=== PATIENT | female | born 1940 | race Caucasian/White ===

== ENCOUNTER 2020-08-17 11:41 | Emergency (ER) | payer OTHER ==
[~2020-08-17] VITALS: Ht 162.6 cm; Wt 101.2 kg
[2020-08-17 14:49] VITALS: BP 165/89
== END 2020-08-17 14:59 | disposition home or self-care (01) ==
LOC: ER 11:46
DX: S00.83XA Contusion of other part of head, initial encounter (principal); S80.02XA Contusion of left knee, initial encounter; S80.01XA Contusion of right knee, initial encounter; S90.02XA Contusion of left ankle, initial encounter; W01.198A Fall on same level from slipping, tripping and stumbling with subsequent striking against other object, initial encounter; Y92.531 Health care provider office as the place of occurrence of the external cause; I50.9 Heart failure, unspecified; I25.10 Atherosclerotic heart disease of native coronary artery without angina pectoris
CPT/HCPCS: 70450; 72125; 72170; 93005; 99284